=== PATIENT | female | born 1975 | race Caucasian/White ===

== ENCOUNTER 2018-04-08 09:11 | Emergency (ER) | payer OTHER ==
[~2018-04-08] VITALS: Ht 160 cm; Wt 81.0 kg
[2018-04-08 09:25] VITALS: Ht 160 cm; Wt 81.0 kg
[2018-04-08] MEDS ORDERED: LIDOCAINE/MYLANTA 40 ML BTL PO ONE (10:00)
[2018-04-08] MEDS ORDERED: DOCU-144 PO (10:04)
[2018-04-08] MEDS ORDERED: SENN-120 PO (10:04)
[2018-04-08 10:50] VITALS: BP 119/78; PULSE 78; RESP 16
--- NOTE | 2018-04-08 13:28 | ERD ---
ER Documentation Chief Complaint Chief Complaint pt bib self with c/o abd pain x 1 month, sob, pressure in epigastric area HPI Patient is a 43-year-old female who presents for constipation. The patient said that she had 1 month of constipation. She had a sharp pain on February 20 and was diagnosed with hiatal hernia. She said the pain comes and goes and is sharp in nature. She reports fevers. She said that she was seen at [place] [facility] and had a CT scan of the abdomen pelvis with contrast which was negative. She was started on antibiotics by her doctor around this time as well for an unknown infection. She also reports shortness of breath for 2 weeks. She said her last bowel movement was 3 days ago and she usually has bowel movements twice per day. Upon review of old medical records this is the saleeme nt's first visit to the emergency department. Her primary doctor is Dr. Tinajero. Her GI doctor is Dr. Graff and she has an appointment scheduled for April. ROS All systems reviewed and are negative except as per history of present illness. Medications Home Meds Active Scripts Docusate Sodium* (Colace*) 100 Mg Capsule, 100 MG PO TID, #30 CAP Prov:PHONG WILSON MD 04/08/18 Sennosides* (Senna Lax*) 8.6 Mg Tablet, 1 TAB PO DAILY, #30 TAB Prov:PHONG WILSON MD 04/08/18 Allergies Allergies: Coded Allergies: No Known Allergy (Unverified , 04/08/18) PMhx/Soc History of Surgery: Yes (Cholecystectomy, X 2 ) Anesthesia Reaction: No Hx Neurological Disorder: No Hx Respiratory Disorders: No Hx Cardiac Disorders: No Hx Psychiatric Problems: Yes (Anxiety) Hx Miscellaneous Medical Probl: No Hx Alcohol Use: No Hx Substance Use: No Hx Tobacco Use: No Smoking Status: Never smoker FmHx Family History: diabetes Physical Exam Vitals Vital Signs Date Temp Pulse Resp B/P (MAP) Pulse Ox O2 O2 Flow FiO2 Time Delivery Rate 04/08/18 78 16 119/78 98 Room Air 10:50 (92) 04/08/18 98.4 99 18 131/73 98 09:25 (92) Physical Exam Const: No acute distress Head: Atraumatic Eyes: Normal Conjunctiva ENT: Normal External Ears, Nose and Mouth. Neck: Full range of motion. No meningismus. Resp: Clear to auscultation bilaterally Cardio: Regular rate and rhythm, no murmurs Abd: Soft, epigastric tenderness to palpation without rebound or guarding Skin: No petechiae or rashes Back: No midline or flank tenderness Ext: No cyanosis, or edema Neur: Awake and alert Psych: Normal Mood and Affect Results 24 hrs Current Medications Medications Dose Sig/Renetta Start Time Status Last (Trade) Ordered Route PRN Stop Time Admin Dose Reason Admin 40 ml ONCE ONCE 04/08/18 DC 04/08/18 Miscellaneous PO 10:00 10:03 Medication 04/08/18 10:01 (Gi Cocktail (2)) Procedures/MDM EKG read by me: Rate/Rhythm: Regular rate and rhythm at a normal rate Intervals: Normal Impression: No evidence of ischemia or arrhythmia Patient is a 43-year-old female who presents with abdominal pain. I believe this may be related to reflux and hiatal hernia. At this point I doubt serious etiology of her pain such as appendicitis, cholecystitis, pancreatitis, or bowel obstruction. EKG was normal. I doubt acute coronary syndrome. She will be discharged but will need to follow-up with her primary doctor within 24-48 hours. She can see Dr. Graff as well for further evaluation. I will give her information for Dr. Brian from surgery for outpatient follow-up for potential repair of the hiatal hernia. Departure Diagnosis: Primary Impression: Constipation Constipation type: unspecified constipation type Qualified Codes: K59.00 - Constipation, unspecified Additional Impression: Abdominal pain Abdominal location: epigastric Qualified Codes: R10.13 - Epigastric pain Condition: Fair Patient Instructions: Abdominal Pain, Constipation (Adult) Referrals: CRIS BRIAN MD Additional Instructions: Call your primary care doctor TOMORROW for an appointment during the next 1-2 days.See the doctor sooner or return here if your condition worsens before your appointment time. PHONG WILSON MD Apr 08, 2018 13:28
== END 2018-04-08 10:52 | disposition home or self-care (01) ==
LOC: E/R 09:11
DX: K59.00 Constipation, unspecified (principal)
CPT/HCPCS: 93005

== ENCOUNTER 2018-04-29 12:37 | Day surgery (SDC) | payer OTHER ==
[~2018-04-29] VITALS: Ht 160 cm; Wt 83.4 kg
[~2018-04-29 12:37] MED LIST: DOCU-144 PO; SENN-120 PO
[2018-04-29 13:20] VITALS: Ht 160 cm; Wt 83.4 kg
[2018-04-29 14:06] VITALS: BP 119/62; PULSE 68; RESP 18
[2018-04-29 15:03] VITALS: BP 117/68; RESP 22
[2018-04-29] MEDS ORDERED: MIDAZOLAM 1 MG/ML 2 ML INJ ONE ×2 (15:17)
[2018-04-29] MEDS ORDERED: FENTAnyl 50 MCG/ML VIAL ONE (15:17)
== END 2018-04-29 15:11 | disposition home or self-care (01) ==
LOC: GIL 12:37
PROVIDERS: ATTEND Internal Medicine Gastroenterology
DX: K29.00 Acute gastritis without bleeding (principal)
CPT/HCPCS: 43239; 88305; 88312; J2250; J3010